=== PATIENT | male | born 1950 | race Hispanic/Latino ===

== ENCOUNTER → 2020-08-04 | Outpatient (CLI) | payer MEDICARE ==
[~2020-08-04] MED LIST: AMLODIPINE BESY10 MG PO; FLOMAX0.4 MG PO; HYDROCHLOROTHIA25 MG PO; TYLENOL WITH C1 EACH PO; VITAMIN D1000 UNI1 PO
== END ==
LOC: NM 08:35
PROVIDERS: ATTEND Internal Medicine Cardiovascular Disease
DX: R07.9 Chest pain, unspecified (principal); R00.2 Palpitations
CPT/HCPCS: 78451; A9502